=== PATIENT | female | born 1930 | race Caucasian/White ===

== ENCOUNTER 2016-04-05 09:54 | Day surgery (SDC) | payer MEDICARE ==
[~2016-04-05] VITALS: Ht 162.6 cm; Wt 64.5 kg
[2016-04-05] VITALS (9 sets, daily range): BP systolic 142–181; BP diastolic 49–77; PULSE 61–70; RESP 13–18; O2SAT 97–99
[~2016-04-05 09:54] MED LIST: ACET-171 PO; ASPI-973 PO; CHOL100045 PO; CYAN10008 PO; GLUC1TAB20 PO; LISI-571 PO
[2016-04-05] MEDS ORDERED: fentaNYL-PF 50 mCg/mL 2 mL Inj ONE (09:55)
[2016-04-05] MEDS ORDERED: Phenylephrine 10,000 mCg/mL Inj ONE (09:55)
[2016-04-05] MEDS ORDERED: Lidocaine PF 1% 30 mL Inj ONE (09:55)
[2016-04-05] MEDS ORDERED: Ondansetron 2 mg/mL 2 mL Inj ONE (09:55)
[2016-04-05] MEDS ORDERED: Propofol 10,000 mCg/mL 20 mL Inj ONE (09:55)
[2016-04-05] MEDS ORDERED: Dexamethasone 4 mg/mL Inj ONE (09:55)
[2016-04-05] MEDS: Lactated Ringer's 1,000 ML IV SCH ×2 (10:00→12:44)
--- NOTE | 2016-04-05 12:18 | DRSVH ---
PROCEDURE: NM SENTINEL NODE INJECTION ONLY, LEFT BREAST RADIOPHARMACEUTICAL: 0.5 mCi Millipore filtered Tc-99m sulfur colloid. INDICATIONS: LEFT BREAST CANCER. PROCEDURE: The indications, alternatives, benefits, risks, and complications of the procedure were explained to the patient. Written informed consent was obtained and placed in the chart. The area around the nip ple was prepped and draped in a sterile fashion. Tc-99m sulfur colloid was injected in the outer edg e of the areola in the left breast. No image was obtained. IMPRESSION: Administration of radiotracer into the left breast periareolar region for intra-operativ e sentinel lymph node localization. Dictated by: Jose David Castaneda M.D. on 04/05/2016 at 12:16 Approved by: Jose David Castaneda M.D. on 04/05/2016 at 12:16
[2016-04-05] MEDS ORDERED: Bupivacaine-MPF 0.5% 30 mL Inj INFILTRATE ONE (12:53)
[2016-04-05] MEDS ORDERED: Lactated Ringer's 500 ML IV PRN (13:16)
[2016-04-05] MEDS ORDERED: Lactated Ringer's 1,000 ML IV SCH (13:16)
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
[2016-04-05] MEDS ORDERED: HYDROmorphone 1 mg/mL Inj IVPUSH PRN (13:20)
[2016-04-05] MEDS ORDERED: fentaNYL-PF 50 mCg/mL 2 mL Inj IVPUSH PRN (13:20)
[2016-04-05] MEDS ORDERED: EPHEDrine Sulfate 50 mg/mL Inj IM PRN (13:20)
[2016-04-05] MEDS ORDERED: Ondansetron 2 mg/mL 2 mL Inj IVPUSH PRN (13:20)
[2016-04-05] MEDS ORDERED: EPHEDrine Sulfate 50 mg/mL Inj IVPUSH PRN (13:20)
[2016-04-05] MEDS ORDERED: Phenylephrine 10,000 mCg/mL Inj IVPUSH PRN (13:20)
[2016-04-05] MEDS ORDERED: HYDROcodone-APAP 5-325 mg Tablet PO PRN (14:20)
--- NOTE | 2016-04-05 14:28 | PCM.ANEP1 ---
Post Anesthesia Phase 1 PACU Phase 1 Assessment Date of Service: Apr 05, 2016 Vital Signs Vital Signs Date Time Temp Pulse Resp B/P Pulse Ox O2 Delivery O2 Flow Rate FiO2 04/05/16 14:15 70 13 155/65 99 Room Air 04/05/16 14:13 36.3 70 14 181/77 98 Room Air 04/05/16 10:30 36.3 65 18 142/56 97 Room Air Anesthetic Administered: GA Level of Alertness: Awake, talking RODRÍGUEZ's with Equal Strength: Yes Pain: No Nausea or Vomiting: No Oxygen Delivery: Room Air Lungs: Clear to Auscultation, Normal Air Movement Dermatome Level: Full Sensation John Chamberlain MD Apr 05, 2016 14:28
--- NOTE | 2016-04-05 15:07 | OP ---
[address] [address] OPERATIVE REPORT PATIENT: MARK MENDEZ : 1930 MR#: [id number] ADMIT: 04/05/2016 JOB ID: [id number] DATE OF SURGERY: 04/05/2016 PREOPERATIVE DIAGNOSIS(ES): Infiltrating ductal carcinoma, left breast. POSTOPERATIVE DIAGNOSIS(ES): Infiltrating ductal carcinoma, left breast. PROCEDURE: 1. Left axillary sentinel lymph node biopsy. 2. Left wire-localized segmental mastectomy. SURGEON: Nilay Sanders MD. CIRCULATION REPRESENTATIVE: Guanaco Raymond PA-C. INDICATIONS: An 85-year-old female, who 27 years ago had infiltrating ductal carcinoma of the right breast. She now presents with a T1, ER-positive HER2/corwin-negative poorly differentiated infiltrating ductal carcinoma. Clinically, she has stage I disease and after discussing surgical options with her, it was elected to proceed with a left axillary sentinel lymph node biopsy and a left wire-localized segmental mastectomy. FINDINGS: The sentinel lymph nodes were easy to find and had counts with gamma scanner up to 700 with a background of 0. At least two nodes were removed. Both had very high counts. The specimen mammogram showed the mass, wire and the biopsy clip all enclosed within tissue, and there was no gross evidence of margin involvement. DESCRIPTION OF PROCEDURE: At the beginning and end of the operation, the SCOAP checklist was completed. An LMA anesthetic was induced. Using ChloraPrep, her left breast, axilla and arm were prepped and draped in the usual fashion. Using the gamma scanner, the axillary node was easily identified. An incision following skin lines was made and infiltrated with 0.5% bupivacaine. Dissection was carried down deep to the clavipectoral fascia and into the axillary tissue using the gamma scanner as a guide. The cesia-bearing tissue was elevated and using the LigaSure, it was removed. As stated above, there was an additional node that remained hot, and it was also removed with the LigaSure. They were submitted as a single specimen. The wound was closed with layers of running subcutaneous 3-0 Vicryl. Then, subcuticular 4-0 Vicryl in the skin. I turned my attention to the segmental mastectomy. The mammograms were up in the room showing the direction of the wire. An elliptical incision around the wire was designed and infiltrated with local anesthesia. Dissection was then extended down into the breast tissue and ultimately also with the use of the LigaSure, the segmental mastectomy was completed and specimen mammograms obtained with results as stated above. Hemostasis was ensured in the breast tissue. Four clips were placed for localization of the space. The wound was closed with running subcutaneous 3-0 Vicryl and running subcuticular 4-0 Vicryl. Dermabond was placed over both incisions. Estimated blood loss less than 10 cc. The specimens were the breast tissue and the sentinel nodes. There were no apparent complications. The final sponge, needle and instrument counts were announced as correct, and she was returned to the recovery room in stable condition. Critical assistance was provided by Guanaco Raymond PA-C.
--- NOTE | 2016-04-05 16:04 | DRSVH ---
PROCEDURE: X-RAY BREAST SPECIMEN ([id number]) INDICATIONS: LEFT BREAST BIOPSY TECHNIQUE: Intraoperative film of the breast surgical specimen acquired. COMPARISON: None. FINDINGS: Tip of the localizing wire is present. Also visualized within the specimen is the nearby biopsy clip being targeted. IMPRESSION: Specimen contains the wire and the region around the biopsy clip which is targeted. Dictated by: Kishan العلي M.D. on 04/05/2016 at 15:57 Approved by: Kishan العلي M.D. on 04/05/2016 at 15:58
--- NOTE | 2016-04-05 17:41 | PCM.ANEP2 ---
Post Anesthesia Evaluation ASA/CMS Post Anesthesia Date of Service: Apr 05, 2016 VS in Patient's Normal Range?: Yes Resp Stable; Airway Patent?: Yes CV Function & Hydration Stable: Yes Mental Status Recovered?: Yes Pain control Satisfactory?: Yes N/V Control Satisfactory?: Yes John Chamberlain MD Apr 05, 2016 17:41
--- NOTE | 2016-04-07 14:51 | PATH ---
SURGICAL PATHOLOGY Attending Physician:Stacy Hodgson CASE STATUS: Signed Out PATIENT NAME: MARK MENDEZ PID: [id number] : 1930 DATE COLLECTED:04/05/2016 23:01 SPECIMEN: 1: [place] Lymph Node 2: Breast, Simple Mastectomy (lymph nodes submitted separately) CLINICAL HISTORY: LEFT BREAST CANCER 1). LEFT AXILLARY SENTINEL NODE X2, LARGE PIECE OF TISSUE OUT AT 13:25 SMALL PIECE OF TISSUE OUT AT 13:27, BOTH IN FORMALIN AT 13:27 2). LEFT BREAST SEGMENTAL BIOPSY, SHORT STITCH LATERAL OUT AT 14:01 LONG STITCH SUPERIOR TIF 14:06 FINAL DIAGNOSIS: INVASIVE CARCINOMA OF THE BREAST, DETERMINED ON PREVIOUS NEEDLE BIOPSY([id number]): ICD10 code C50.112 CAP CANCER CASE SUMMARY INVASIVE CARCINOMA OF THE BREAST: PROCEDURE: WIDE LOCAL EXCISION LYMPH NODE SAMPLING: TWO SENTINEL NODES AND TWO ADDITIONAL NODES SPECIMEN LATERALITY: LEFT HISTOLOGIC TYPE: (DIAGNOSIS FROM PREVIOUS BIOPSY) INFILTRATING DUCTAL CARCINOMA HISTOLOGIC GRADE: BARRIE HISTOLOGIC SCORE (FROM PREVIOUS BIOPSY) 8 OF 9 Glandular/Tubular differentiation: Score 3 OF 3 Nuclear Pleomorphism: Score 3 OF 3 Mitotic Rate: Score 2 OF 3 Overall Grade: Grade HIGH (3 OF 3) TUMOR FOCALITY: SINGLE FOCUS DUCTAL CARCINOMA IN SITU: PRESENT WITHIN THE CURRENT EXCISIONAL SPECIMEN Size (Extent) of DCIS: 0.2 CM Architectural patterns: SOLID AND CRIBRIFORM Nuclear grade: Grade HIGH Necrosis: PRESENT MARGINS INVASIVE CARCINOMA: NONE PRESENT WITHIN THE EXCISIONAL SPECIMEN DUCTAL CARCINOMA IN SITU: ALL MARGINS GREATER THAN 1.0 CM LYMPH NODES Total number of lymph nodes examined: FOUR Number of sentinel lymph nodes examined: TWO Lymph Node Involvement: ALL LYMPH NODES NEGATIVE FOR TUMOR Method of Evaluation of [place] Lymph Nodes: SERIAL HISTOLOGIC SECTIONS LYMPH-VASCULAR INVASION: NEGATIVE PATHOLOGIC STAGING: AJCC, 7th ed., 2010 (BASED ON PREVIOUS BIOPSY) PRIMARY TUMOR: pT1a REGIONAL LYMPH NODES: pN0 (sn) ANCILLARY STUDIES (PERFORMED BY IMMUNOHISTOCHEMISTRY): Biomarkers Performed Previously on Case: Estrogen Receptor (ER) Status: POSITIVE Progesterone Receptor (PgR) Status: POSITIVE HER2 (by immunohistochemistry): NEGATIVE GROSS DESCRIPTION: The specimens are received in formalin, labeled with the patient's name, and sublabeled as the following: (1) left axillary sentinel node, 2 specimens; (2) left breast segmental mastectomy. (1) The specimen consists of 2 pieces of adipose tissue (piece #1 -- 3.5 x 2.9 x 1.5 cm; piece #2-2.0 x 1.1 x 0.8 cm). Piece #1 contains multiple possible lymph nodes (0.2 x 0.1 x 0.1 cm-2.2 x 1.0 x 0.4 cm. Piece #2 contains a possible lymph node (0.7 x 0.5 x 0.5 cm). Section code: (1A) multiple intact lymph nodes from piece #1; (1B) one lymph node from piece #1, serially sectioned; (1C) one lymph node from piece #2, bisected. Note: Approximate total fixation time in formalin-29 hours calculated using a collection date of April 05, 2016 with a time in fixative of 1327. (2) The specimen consists of a piece of breast tissue (5.5 cm AP, 2.8 cm SI, 3.2 cm ML) partially covered by an ellipse of skin (0.8 cm SI, 2.2 cm ML). The specimen is oriented with 2 black sutures (short-lateral, long-superior). A localization wire is present. The specimen is serially sectioned ML into 12 slices with the medial and lateral resection margins slices #1 and #12 respectively. The breast tissue is fatty and contains a puga-white solid firm irregular partially cystic mass (0.8 x 2.2 x 0.6 cm) within slices #6-#8. The mass is 3.6 cm from the skin surface, 0.5 cm from the posterior, 0.3 cm from the superior, 0.3 cm from the inferior, 1.3 cm from the medial, and 1.1 cm from the lateral resection margins. The cavity contains martinez clear gelatinous material. No other nodules, masses or lesions are identified. The skin is martinez-white and enter remarkable. Ink code: purple-anterior; yellow-posterior; black-superior; orange-inferior; green-medial; blue-lateral. Section code: (2A) medial resection margin, perpendicularly sectioned, car sales representative; (2B-2C) slice #5, tissue adjacent to mass, bisected and submitted AP, entirely submitted; (2D-2E) slice #6, bisected and submitted AP, entirely submitted; (2F-2G) slice #7, bisected and submitted AP, entirely submitted; (2H-2I) slice #8, bisected and submitted AP, entirely submitted; (2J-2K) slice #9, tissue adjacent to mass, bisected and submitted AP, entirely submitted; (2L) lateral resection margin, perpendicularly sectioned, car sales representative. Note: Approximate total fixation time in formalin-28 hours and 30 minutes calculated using a collection date of April 05, 2016 with a time in fixative of 1406. 04/06/16 JM MICRO DESCRIPTION: Sections from part 1 are of two sentinel lymph nodes and two additional lymph nodes. All nodes are negative for malignancy. Sections from part 2 is from a left breast segmental excisional specimen. The previous biopsy site is located and corresponds to the grossly described mass. It consists of a large cystic space secondary to fat necrosis with associated fibrosis and chronic inflammation. There is no residual invasive carcinoma present within this material; however, there are foci of DCIS present. The DCIS is of high nuclear grade with central necrosis and focal calcification. The largest focus measures 0.2 cm. The excisional margins are all greater than 1.0 cm. for the DCIS. Although there is no residual invasive carcinoma present, the data for the invasive tumor will be obtained from the previous biopsy report ([id number]). In that biopsy, the largest area of infiltration was 0.5 cm as measured on the slide. The tumor was high grade (Barrie grade 3 of 3, with tubular differentiation score of 3, nuclear score of 3, and mitotic rate of 2). ER, TX, and Her-2 were performed on the previous biopsy, and ER and TX were positive, and the Her-2 was negative, all by immunohistochemistry. ICD-9 CODES: CPT CODES: 1: 20378 2: 31489 Electronically Signed Out Samuel Edwards MD [facility] [address], [place] [address] Technical component performed at [facility], [facility] [address], [place], [address]
== END 2016-04-05 23:59 | disposition home or self-care (01) ==
LOC: SAS 09:54
PROVIDERS: ATTEND Surgery
DX: C50.112 Malignant neoplasm of central portion of left female breast (principal); I25.10 Atherosclerotic heart disease of native coronary artery without angina pectoris; I44.1 Atrioventricular block, second degree; K21.9 Gastro-esophageal reflux disease without esophagitis; F41.9 Anxiety disorder, unspecified; I10 Essential (primary) hypertension; Z85.3 Personal history of malignant neoplasm of breast; Z79.82 Long term (current) use of aspirin; Z86.010 Personal history of colon polyps; Z95.0 Presence of cardiac pacemaker
CPT/HCPCS: 19301; 38525; 38792; 76098; A9541; J1100; J2370; J2405; J3010; J7120